=== PATIENT | male | born 1970 | race Caucasian/White ===

== ENCOUNTER 2018-10-22 05:40 | Emergency (ER) | payer BC ==
[~2018-10-22] VITALS: Ht 160 cm; Wt 85.7 kg
[2018-10-22 05:55] VITALS: Ht 160 cm; Wt 85.7 kg
[2018-10-22 11:03] VITALS: BP 116/76
== END 2018-10-22 11:03 | disposition home or self-care (01) ==
LOC: ED 05:40
DX: S29.9XXA Unspecified injury of thorax, initial encounter (principal); M54.5 Low back pain; V48.5XXA Car driver injured in noncollision transport accident in traffic accident, initial encounter; Y93.I9 Activity, other involving external motion; Y92.411 Interstate highway as the place of occurrence of the external cause; Y99.8 Other external cause status